=== PATIENT | male | born 1975 | race Caucasian/White ===

== ENCOUNTER 2018-04-29 11:45 | Emergency (ER) | payer OTHER ==
[~2018-04-29] VITALS: Ht 172.7 cm; Wt 79.4 kg
[2018-04-29 13:10] VITALS: BP 127/69
[2018-04-29] MEDS ORDERED: EPIPEN0.3 MG/0.1 IM (13:18)
--- NOTE | 2018-04-29 13:18 | ED GENERAL ADULT ---
History of Present Illness General Chief Complaint: Allergy Symptoms Stated Complaint: ALLERGIC REACTION, BEE STING Source: patient Exam Limitations: no limitations Vital Signs & Intake/Output Vital Signs & Intake/Output Vital Signs Date Time Temp Pulse Resp B/P B/P Pulse O2 O2 Flow FiO2 Mean Ox Delivery Rate 04/29 1310 97.7 85 18 127/69 100 Room Air 04/29 1211 Room Air 04/29 1152 97.6 119 18 140/68 94 Room Air Reconcile Medications Epinephrine (Epipen) 0.3 MG/0.3 ML AUTO.INJCT 1 INJ IM ONCE PRN anaphylaxis Triage Note: PT ARRIVED TO ED FOR ALLERGIC REACTION TO BEE STING. HISTORY OF ALLERGY TO BEES. PT WITH NO ACUTE RESP DISTRESS. COMPLAINING OF TOUNGE SWELLING MAKING IT DIFFICULT TO TALK. HIVES NOTED ON ENTIRE TORSO AND ARMS. PT TOOK PO BENADRYL PRIOR TO ARRIVAL BUT NOT SURE OF DOSAGE. PT BROUGHT DIRECTLY TO ROOM 19. SEEN BY MICHAEL WOOTEN. IV STARTED AND PT MEDICATED WITH BENADRYL. PEPCID AND SOLUMEDROL. ON PULSE OX WITH SATS 98%. LUNGS CLEAR. Triage Nurses Notes Reviewed? yes Onset: Abrupt Duration: hour(s): Timing: single episode today HPI: 42-year-old male with a history of asthma and allergy to bees presenting with hives status post a bee sting to his right arm just prior to arrival. Patient states that he took Benadryl prior to arrival, unsure of the dosage. Patient did not require use of his EpiPen. Triage note mentions tongue sweling and difficutly speaking, on my evaluation pt has no tongue swelling, no difficulty speaking, appears in NAD. Patient denies tongue swelling, lip swelling, throat tightness, dysphasia, chest pain, shortness of breath, abdominal pain, nausea, vomiting, diarrhea. (Donna Huerta) Past History Travel History Traveled to [place] past 21 day No Medical History Any Pertinent Medical History? see below for history Neurological: NONE EENT: NONE Cardiovascular: NONE Respiratory: asthma Gastrointestinal: NONE Hepatic: NONE Renal: NONE Musculoskeletal: NONE Psychiatric: NONE Endocrine: NONE Surgical History Surgical History: non-contributory Psychosocial History What is your primary language Tanzanian Tobacco Use: Current Daily Use Daily Tobacco Use Amount/Type: =< 4 Cigarettes daily Family History Hx Contributory? No (Donna Huerta) Review of Systems Review of Systems Constitutional: Reports: no symptoms. EENTM: Reports: no symptoms. Respiratory: Reports: no symptoms. Cardiovascular: Reports: no symptoms. GI: Reports: no symptoms. Genitourinary: Reports: no symptoms. Musculoskeletal: Reports: no symptoms. Skin: Reports: see HPI. Neurological/Psychological: Reports: no symptoms. Hematologic/Endocrine: Reports: no symptoms. Immunologic/Allergic: Reports: no symptoms. (Donna Huerta) Physical Exam Physical Exam General Appearance: well developed/nourished, no apparent distress, alert, awake , comfortable Head: atraumatic, normal appearance Eyes: Bilateral: normal appearance. Ears, Nose, Throat: no oropharyngeal edema, no angioedema Neck: normal inspection Respiratory: normal breath sounds, lungs clear Cardiovascular: regular rate/rhythm Gastrointestinal: soft, non-tender Back: normal range of motion Extremities: normal range of motion, puncture wound to the medial upper right arm. Patient was stung, no visible or palpable residual stinger Neurologic/Psych: awake, alert, oriented x 3, normal gait, normal mood/affect Skin: intact, warm/dry, hives to bilateral upper extremities, chest, abdomen, back Core Measures ACS in differential dx? No CVA/TIA Diagnosis: No Sepsis Present: No Sepsis Focused Exam Completed? No (Donna Huerta) Progress Differential Diagnoses I considered the following diagnoses in my evaluation of the patient: [Allergic reaction versus anaphylaxis] Plan of Care: Current Medications Sig/Charlie Start time Last Medication Dose Stop Time Status Admin Famotidine 20 MG ONCE ONE 04/29 1200 CAN (Pepcid) 04/29 1201 Patient was given IV Benadryl, Pepcid, Cipro Medrol with near complete resolution of his hives. Vital signs remained within normal limits, no signs of anaphylaxis on exam. Patient feels improved and is requesting to be discharged home. Given refill on his EpiPen, counseled on supportive care and strict return precautions. Will follow up with his PMD for reevaluation. Initial ED EKG: none (Donna Huerta) Departure Departure Disposition: HOME OR SELF CARE Condition: Stable Clinical Impression Primary Impression: Allergic reaction Referrals: Griffin JERRY,Pascual Jolly III (PCP/Family) Additional Instructions: Take 25 mg of Benadryl every 6 hours for the next 24 hours. Keep your EpiPen and you at all times. Follow-up with your primary care provider for reevaluation. Return to the emergency department for any new or worsening symptoms. Departure Forms: Customer Survey General Discharge Information Prescriptions: Current Visit Scripts Epinephrine (Epipen) 1 INJ IM ONCE PRN anaphylaxis #1 INJ (Donna Huerta) PA/HOUSEKEEPING AND [employer]UN[employer] TEAM LEADER Co-Sign Statement Statement: ED Attending supervision documentation- [] I saw and evaluated the patient. I have also reviewed all the pertinent lab results and diagnostic results. I agree with the findings and the plan of care as documented in the PA's/HOUSEKEEPING AND LAUNDRY TEAM LEADER's documentation. [X] I have reviewed the ED Record and agree with the PA's/HOUSEKEEPING AND LAUNDRY TEAM LEADER's documentation. [] Additions or exceptions (if any) to the PAs/HOUSEKEEPING AND LAUNDRY TEAM LEADER's note and plan are summarized below: [] (Marylou JERRY,Tomas Tam) Critical Care Note Critical Care Note Critical Care Time: non-applicable (Donna Huerta)
== END 2018-04-29 13:41 ==
LOC: ERH 11:45
DX: T63.441A Toxic effect of venom of bees, accidental (unintentional), initial encounter (principal)
CPT/HCPCS: 96374; 96375; J1200; J2930